=== PATIENT | female | born 1930 | race Caucasian/White ===

== ENCOUNTER → 2017-07-15 | Outpatient (CLI) | payer OTHER ==
--- NOTE | 2017-07-15 11:51 | DIAGNOSTIC IMAGING REPORT ---
CHEST 2 VIEWS ROUTINE CLINICAL HISTORY: Cough. COMPARISON STUDY: No previous studies for comparison. FINDINGS: There is no pneumothorax. A small to moderate left pleural effusion is present. There is no evidence of pulmonary edema. There may be elevation of the left hemidiaphragm. Nodular left basilar opacity is present. Right lung is clear. Moderate cardiomegaly is noted. IMPRESSION: 1. Small to moderate left pleural effusion with nodular left basilar opacity. This may reflect atelectasis or consolidation. However, a chest CT is recommended to exclude an underlying lesion. 2. Moderate cardiomegaly without evidence of pulmonary edema. Electronically signed by: Felipe Pozo M.D. 07/15/2017 11:50 AM Dictated Date/Time: 07/15/2017 11:45 AM
== END | disposition home or self-care (01) ==
LOC: C.RAD1850 10:44
PROVIDERS: ATTEND Physician Assistant Medical
DX: R05 Cough (principal); J90 Pleural effusion, not elsewhere classified; R91.8 Other nonspecific abnormal finding of lung field; I51.7 Cardiomegaly

== ENCOUNTER → 2017-07-25 | Outpatient (CLI) | payer OTHER ==
--- NOTE | 2017-07-25 11:41 | DIAGNOSTIC IMAGING REPORT ---
TWO VIEW CHEST CLINICAL HISTORY: Cough. FINDINGS: PA and lateral chest radiographs are compared to study dated . The patient is status post midline sternotomy. The heart is enlarged and there is atherosclerotic calcification of the thoracic aorta. The pulmonary vasculature is noncongested. Chronic interstitial thickening similar to previous. There is elevation of the left hemidiaphragm. Left basilar consolidation is observed. A trace left pleural effusion is noted. The right lung appears clear. There is no pneumothorax. The skeletal structures are osteopenic. Mild degenerative change and hyperkyphosis are noted in the thoracic spine. IMPRESSION: 1. Cardiomegaly without radiographic evidence of congestive failure. 2. There is consolidative change at the left lung base may small left pleural effusion. Correlate clinically for evidence of pneumonia/aspiration pneumonitis. Radiographic follow-up to resolution is recommended. Electronically signed by: Melchor Scott M.D. 07/25/2017 11:39 AM Dictated Date/Time: 07/25/2017 11:38 AM
== END | disposition home or self-care (01) ==
LOC: C.RAD1850 10:56
PROVIDERS: ATTEND Physician Assistant Medical
DX: R93.8 Abnormal findings on diagnostic imaging of other specified body structures (principal); I51.7 Cardiomegaly; J90 Pleural effusion, not elsewhere classified